=== PATIENT | female | born 1980 ===

== ENCOUNTER 2016-10-26 07:27 | Observation (INO) | payer MEDICAID ==
[2016-10-26 07:27] VITALS: BMI 29.6
--- NOTE | 2016-10-26 07:36 | C.PDOC ---
History Of Present Illness 36-year-old female, PMHx includes Anemia, secondary to uterine fibroid, presents to the emergency department with complaints of low hgb. Patient states she was seen by her PMD for generalized weakness and shortness of breath last week, who did blood work, and patient was found to have a low hgb, resulting in her being sent to the ED for evaluation and blood transfusion. Patient sts she had already 9 blood transfusions before. Patient notes that she is pending OBGYN appointment on 11/05. Denies any current vaginal bleeding/discharge, nausea/vomiting/diarrhea, fevers, chills, or any other associated symptoms. No other complaints at this time. PMD Genna Batres MD. Past Medical History Reviewed: Historical Data, Nursing Documentation, Vital Signs Vital Signs: Last Vital Signs Temp 98.6 F 10/26/16 07:38 Pulse 95 H 10/26/16 07:38 Resp 18 10/26/16 07:48 BP 113/75 10/26/16 07:38 Pulse Ox 99 10/26/16 07:48 - Medical History PMH: Anemia, Asthma Denies: Depression, Chronic Kidney Disease - [facility] Procedures INJECT/INFUSE ELECTROLYT (02/24/14) INJECT/INFUSE NEC (02/24/14) PACKED CELL TRANSFUSION (09/22/14) THERAPEUTIC ERYTHROCYTAPHERESIS (08/08/14) TRANSFUSE NONAUT RED BLOOD CELLS IN PERIPH VEIN, PERC (06/16/16) Family History: States: No Known Family Hx - Social History Hx Tobacco Use: Yes Hx Alcohol Use: No Hx Substance Use: No - Immunization History Hx Tetanus Toxoid Vaccination: Yes Hx Influenza Vaccination: No Hx Pneumococcal Vaccination: Yes Review Of Systems Except As Marked, All Systems Reviewed And Found Negative. Constitutional: Negative for: Fever, Chills Cardiovascular: Negative for: Chest Pain, Palpitations Respiratory: Positive for: Shortness of Breath Gastrointestinal: Negative for: Nausea, Vomiting Physical Exam - Physical Exam Appears: Non-toxic, No Acute Distress Skin: Warm, Dry, Pale, No Rash Head: Atraumatic Eye(s): bilateral: Normal Inspection Nose: Normal Oral Mucosa: Moist Lips: Normal Appearing Neck: Normal ROM Cardiovascular: Rhythm Regular, No Murmur Respiratory: Normal Breath Sounds, No Accessory Muscle Use Extremity: Normal ROM Neurological/Psych: Oriented x3 ED Course And Treatment - Laboratory Results Result Diagrams: 10/26/16 08:27 10/26/16 08:27 ECG: Interpreted By Me, Viewed By Me ECG Rhythm: Sinus Rhythm ECG Interpretation: No Acute Changes Rate From EC Progress Note: HGb 5.8. 2 units of PRBCs ordered. Case was d/w who accepts patient to [place] for observation. Disposition - Disposition Disposition: HOSPITALIZED Disposition Time: 09:21 Condition: FAIR - Clinical Impression Clinical Impression: Symptomatic anemia - PA / [employer] MANAGER / Resident Statement MD/DO has reviewed & agrees with the documentation as recorded. - Scribe Statement The provider has reviewed the documentation as recorded by the Scribe Andre Rodrigues All medical record entries made by the Scribe were at my direction and personally dictated by me. I have reviewed the chart and agree that the record accurately reflects my personal performance of the history, physical exam, medical decision making, and the department course for this patient. I have also personally directed, reviewed, and agree with the discharge instructions and disposition. Decision To Admit - Pt Status Changed To: Hospital Disposition Of: Observation - . Bed Request Type: Regular Admitting Physician: Filippo Arteaga Patient Diagnosis: Symptomatic anemia
[2016-10-26] MEDS ORDERED: Sodium Chloride 0.9% 1,000 ML IV STA (08:14)
[2016-10-26] MEDS ORDERED: Sodium Chloride 0.9% 1,000 ML ONE (08:28)
[2016-10-26 08:34] LABS: BASO % 0.3 % (0.0-2.0); EOS # 0.1 K/uL (0.0-0.7); EOS % 1.3 % (0.0-4.0); HEMATOCRIT 20.5 % (34.0-47.0); LYMPH # 1.8 K/uL (1.0-4.3); LYMPH % 23.6 % (20.0-40.0); MEAN CELL VOLUME 51.9 fL (81.0-99.0); MEAN CORPUSCULAR HEMOGLOBIN 14.6 pg (27.0-31.0); MEAN CORPUSCULAR HGB CONC 28.2 g/dL (33.0-37.0); MEAN PLATELET VOLUME 8.6 fL (7.2-11.7); MONO # 0.4 K/uL (0.0-0.8); MONO % 5.6 % (0.0-10.0); RED CELL DISTRIBUTION WIDTH 19.6 % (11.5-14.5); WHITE BLOOD COUNT 7.6 K/uL (4.8-10.8)
[2016-10-26 08:41] LABS: CHLORIDE 105 mmol/L (98-107); POTASSIUM 3.9 mmol/L (3.6-5.2); SODIUM 139 mmol/L (132-148)
[2016-10-26 08:43] LABS: BILIRUBIN,TOTAL 0.5 mg/dL (0.2-1.3); GFR AFRICAN-AMERICAN > 60
[2016-10-26 08:44] LABS: ALB/GLOB RATIO 1.4 (1.0-2.1); ALKALINE PHOSPHATASE 87 U/L (38-126); ALT/SGPT 17 U/L (9-52); AST/SGOT 18 U/L (14-36); BLOOD UREA NITROGEN 9 mg/dL (7-17); CARBON DIOXIDE 24 mmol/L (22-30); GLUCOSE,RANDOM 88 mg/dL (65-105); TOTAL PROTEIN 7.4 g/dL (6.3-8.3)
[2016-10-26 08:45] LABS: CALCIUM 8.7 mg/dl (8.6-10.4)
[2016-10-26 09:35] LABS: URINE BILIRUBIN NEGATIVE (NEGATIVE); URINE BLOOD 1+ (NEGATIVE); URINE COLOR Yellow (YELLOW); URINE GLUCOSE (UA) NORMAL (Normal); URINE KETONE NEGATIVE (NEGATIVE); URINE LEUKOCYTE ESTERASE NEG Leu/uL (Negative); URINE PROTEIN NEGATIVE (NEGATIVE); URINE UROBILINOGEN NORMAL mg/dL (0.2-1.0); WBC URINE 3 /hpf (0-5)
[2016-10-26 09:36] LABS: RBC URINE 4 /hpf (0-3)
--- NOTE | 2016-10-26 10:55 | CP.PCM.HP ---
<Rae Odonnell - Last Filed: 10/26/16 10:43> History of Present Illness - History of Present Illness History of Present Illness: CC: headache/weakness 36-year-old female with PMHx of anemia w/multiple transfusions, fibroid uterus, asthma, presents to the ED for 1 week history of headache, weakness, and chest discomfort. Patient has multiple admissions for the same in the past with need for transfusions. Patient follows with Dr. Burch and gets IV Iron infusions. Last infusion was June 2016 after last admission. FDLMP was 10/19/16 which lasted until today 10/26/26. She went to see her PMD Dr. Hobbs last week, who told her to go to the ED because her Hgb was 6.4 at that time. However, patient decided not to go. She came in today for worsening headache, lightheadedness, weakness. Currently she is not on her period. Admits periods are heavy and last 7-8 days. Admits to headache, chest pain, lightheadedness, weakness, hot/cold intolerance. Denies SOB, wheezing, palpitations, fevers, chills, nausea, vomiting, diarrhea, constipation, LE swelling. 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 PMHX: Asthma, Anemia, Fibroid uterus, Multiple blood transfusions. Allergies: NKDA Medications: Iron pills, Albuterol SHx: x 2, L falopian tube removed Social Hx: Smokes 3-4 cigs per day since age 20. Denies alcohol and drug use. Family Hx: Parents of HIV. Patient denies HIV and has been tested. PMD: Dr. Hobbs Rabbler: Dr. Burch Present on Admission - Present on Admission Any Indicators Present on Admission: No Review of Systems - Constitutional Constitutional: Fatigue. absent: Chills, Fever - EENT Eyes: absent: Blurred Vision, Change in Vision - Cardiovascular Cardiovascular: Chest Pain, Chest Pain with Activity. absent: Dyspnea, Edema, Palpitations - Respiratory Respiratory: absent: Cough, Dyspnea, Wheezing - Gastrointestinal Gastrointestinal: absent: Abdominal Pain, Constipation, Diarrhea, Hematemesis, Hematochezia, Loose Stools, Melena, Nausea, Vomiting - Genitourinary Genitourinary: absent: Difficulty Urinating, Dysuria - Reproductive: Female Reproductive:Female: Menses >/= 8 Days, Heavy Menses, Abnormal Vaginal Bleeding - Musculoskeletal Musculoskeletal: absent: Back Pain, Myalgias, Numbness, Tingling - Integumentary Integumentary: absent: Rash, Wounds - Neurological Neurological: absent: Weakness - Psychiatric Psychiatric: absent: Anxiety - Endocrine Endocrine: Fatigue. absent: Palpitations - Hematologic/Lymphatic Hematologic: absent: Easy Bleeding, Easy Bruising Past Patient History - Infectious Disease Hx of Infectious Diseases: None - Tetanus Immunizations Tetanus Immunization: Unknown - Past Medical History & Family History Past Medical History?: Yes - Past Social History Smoking Status: Light Smoker < 10 Cigarettes Daily - CARDIAC Hx Cardiac Disorders: No - PULMONARY Hx Asthma: Yes - NEUROLOGICAL Hx Neurological Disorder: No - HEENT Hx HEENT Problems: No - RENAL Hx Chronic Kidney Disease: No - ENDOCRINE/METABOLIC Hx Endocrine Disorders: No - HEMATOLOGICAL/ONCOLOGICAL Hx Anemia: Yes - INTEGUMENTARY Hx Dermatological Problems: No - MUSCULOSKELETAL/RHEUMATOLOGICAL Hx Musculoskeletal Disorders: Yes (DISLOCATED DISKS 4YRS AGO) Hx Back Pain: Yes Hx Falls: No - GASTROINTESTINAL Hx Gastrointestinal Disorders: No - GENITOURINARY/GYNECOLOGICAL Hx Genitourinary Disorders: No - PSYCHIATRIC Hx Depression: No Hx Substance Use: No - SURGICAL HISTORY Hx Section: Yes (X 2) Other/Comment: Left side FALLOPIAN tube removed - ANESTHESIA Hx Anesthesia: Yes Hx Anesthesia Reactions: No Meds Allergies/Adverse Reactions: Allergies Allergy/AdvReac Type Severity Reaction Status Date / Time No Known Allergies Allergy Verified 10/26/16 07:43 Physical Exam - Constitutional Appears: No Acute Distress - Head Exam Head Exam: NORMAL INSPECTION, NORMOCEPHALIC - Eye Exam Eye Exam: EOMI. absent: Normal appearance (pale conjuctiva) - ENT Exam ENT Exam: Mucous Membranes Moist - Neck Exam Neck exam: Positive for: Full Rom, Normal Inspection - Respiratory Exam Respiratory Exam: Clear to Auscultation Bilateral, NORMAL BREATHING PATTERN. absent: Rales, Rhonchi, Wheezes - Cardiovascular Exam Cardiovascular Exam: REGULAR RHYTHM, +S1, +S2 - GI/Abdominal Exam GI & Abdominal Exam: Normal Bowel Sounds, Soft. absent: Distended, Tenderness - Extremities Exam Extremities exam: Positive for: full ROM, normal inspection. Negative for: pedal edema - Back Exam Back exam: NORMAL INSPECTION - Neurological Exam Neurological exam: Alert, CN II-XII Intact, Oriented x3 - Psychiatric Exam Psychiatric exam: Normal Affect, Normal Mood - Skin Skin Exam: Dry, Pallor, Warm Results - Vital Signs Recent Vital Signs: Last Vital Signs Temp 98.3 F 10/26/16 10:20 Pulse 92 H 10/26/16 10:20 Resp 17 10/26/16 10:20 BP 112/56 L 10/26/16 10:20 Pulse Ox 99 10/26/16 10:20 - Labs Result Diagrams: 10/26/16 08:27 10/26/16 08:27 Labs: Laboratory Results - last 24 hr 10/26/16 09:27 Urine Color Yellow Urine Clarity Hazy Urine pH 5.0 Ur Specific [place] 1.021 Urine Protein Negative Urine Glucose (UA) Normal Urine Ketones Negative Urine Blood 1+ H Urine Nitrate Negative Urine Bilirubin Negative Urine Urobilinogen Normal Ur Leukocyte Esterase Neg Urine WBC (Auto) 3 Urine RBC (Auto) 4 H Ur Squamous Epith Cells 8 H Urine HCG, Qual Negative Assessment & Plan (1) Symptomatic anemia Assessment and Plan: H/H: 5.8/20.5 on admission. Vital signs stable. Patient with history of fibroid uterus, menorrhagia, and multiple transfusions. Will transfuse 2 units of PRBC No Iron studies ordered in the ED prior to emergent transfusion. f/u CBC at 6pm and in the AM Will transfuse additional units as needed PT/PTT/INR WNL EKG showed NSR 77 bpm Status: Acute (2) Chest pain Assessment and Plan: f/u JIE Panel EKG shows NSR 77 bpm Status: Acute (3) Asthma Assessment and Plan: No chemical anticoagulation at this time 2/2 severe anemia from uterine bleed. SCDs Pepcid 20 mg PO BID Status: Acute (4) Prophylactic measure Status: Acute <JenniFilippo M - Last Filed: 10/26/16 13:58> Results - Vital Signs Recent Vital Signs: Last Vital Signs Temp 97.6 F 10/26/16 13:08 Pulse 85 10/26/16 13:08 Resp 18 10/26/16 13:08 BP 100/59 L 10/26/16 13:08 Pulse Ox 99 10/26/16 12:20 - Labs Result Diagrams: 10/26/16 08:27 10/26/16 08:27 Labs: Laboratory Results - last 24 hr 05/27/17 09:27 Urine Color Yellow Urine Clarity Hazy Urine pH 5.0 Ur Specific [place] 1.021 Urine Protein Negative Urine Glucose (UA) Normal Urine Ketones Negative Urine Blood 1+ H Urine Nitrate Negative Urine Bilirubin Negative Urine Urobilinogen Normal Ur Leukocyte Esterase Neg Urine WBC (Auto) 3 Urine RBC (Auto) 4 H Ur Squamous Epith Cells 8 H Urine HCG, Qual Negative Attending/Attestation - Attestation I have personally seen and examined this patient.: Yes I have fully participated in the care of the patient.: Yes I have reviewed all pertinent clinical information: Yes Notes (Text): 10/26/16 13:58 Patient was seen and examined at bedside We will transfuse patient 2 units of PRBC. We will check the hemoglobin after transfusion. I discussed the plan of care with the resident and agree with the above history and physical and assessment/plan but the resident.
[2016-10-26 14:13] VITALS: RESP 20
[2016-10-26 16:29] VITALS: BP 94/60; PULSE 86; TEMP 98.1; O2SAT 98
[2016-10-26 18:26] LABS: BASO # 0.1 K/uL (0.0-0.2); BASO % 0.8 % (0.0-2.0); EOS # 0.1 K/uL (0.0-0.7); EOS % 1.1 % (0.0-4.0); HEMATOCRIT 28.4 % (34.0-47.0); LYMPH # 2.9 K/uL (1.0-4.3); LYMPH % 29.5 % (20.0-40.0); MEAN CORPUSCULAR HEMOGLOBIN 17.2 pg (27.0-31.0); MEAN CORPUSCULAR HGB CONC 29.3 g/dL (33.0-37.0); MEAN PLATELET VOLUME 8.7 fL (7.2-11.7); MONO # 0.6 K/uL (0.0-0.8); MONO % 5.9 % (0.0-10.0); RED CELL DISTRIBUTION WIDTH 28.6 % (11.5-14.5); WHITE BLOOD COUNT 9.8 K/uL (4.8-10.8)
[2016-10-26 18:33] LABS: MEAN CELL VOLUME 58.9 fL (81.0-99.0)
--- NOTE | 2016-10-26 18:49 | CP.PCM.DIS ---
<Rae Odonnell - Last Filed: 10/26/16 18:47> Provider - Provider Date of Admission: 10/26/16 09:23 Attending physician: Filippo Arteaga MD Consults: None Time Spent in preparation of Discharge (in minutes): 5 (left AMA) Diagnosis - Discharge Diagnosis (1) Symptomatic anemia Status: Acute Comment: transferred 2 units of PRBC. Left AMA Hospital Course - Lab Results Lab Results: Most Recent Lab Values WBC 9.8 K/uL (4.8-10.8) 10/26/16 18:23 RBC 4.83 Mil/uL (3.80-5.20) 10/26/16 18:23 Hgb 8.3 g/dL (11.0-16.0) L D 10/26/16 18:23 Hct 28.4 % (34.0-47.0) L 10/26/16 18:23 MCV 58.9 fL (81.0-99.0) L D 10/26/16 18:23 MCH 17.2 pg (27.0-31.0) L 10/26/16 18:23 MCHC 29.3 g/dL (33.0-37.0) L 10/26/16 18:23 RDW 28.6 % (11.5-14.5) H 10/26/16 18:23 Plt Count 434 K/uL (130-400) H 10/26/16 18:23 MPV 8.7 fL (7.2-11.7) 10/26/16 18:23 Neut % (Auto) 62.7 % (50.0-75.0) 10/26/16 18:23 Lymph % (Auto) 29.5 % (20.0-40.0) 10/26/16 18:23 Hendricks % (Auto) 5.9 % (0.0-10.0) 10/26/16 18:23 Eos % (Auto) 1.1 % (0.0-4.0) 10/26/16 18:23 Baso % (Auto) 0.8 % (0.0-2.0) 10/26/16 18:23 Neut # 6.2 K/uL (1.8-7.0) 10/26/16 18:23 Lymph # 2.9 K/uL (1.0-4.3) 10/26/16 18:23 Hendricks # 0.6 K/uL (0.0-0.8) 10/26/16 18:23 Eos # 0.1 K/uL (0.0-0.7) 10/26/16 18:23 Baso # 0.1 K/uL (0.0-0.2) 10/26/16 18:23 Differential Comment 10/26/16 08:27 PT 11.7 SECONDS (9.7-12.2) 10/26/16 08:27 INR 1.0 10/26/16 08:27 APTT 28 SECONDS (21-34) 10/26/16 08:27 Sodium 139 mmol/L (132-148) 10/26/16 08:27 Potassium 3.9 mmol/L (3.6-5.2) 10/26/16 08:27 Chloride 105 mmol/L (98-107) 10/26/16 08: Carbon Dioxide 24 mmol/L (22-30) 10/26/16 08:27 Anion Gap 14 (10-20) 10/26/16 08:27 BUN 9 mg/dL (7-17) 10/26/16 08:27 Creatinine 0.6 MG/DL (0.7-1.2) L 10/26/16 08:27 Est GFR ( Amer) > 60 10/26/16 08:27 Est GFR (Non-Af Amer) > 60 10/26/16 08:27 Random Glucose 88 mg/dL (65-105) 10/26/16 08: Calcium 8.7 mg/dl (8.6-10.4) 10/26/16 08:27 Total Bilirubin 0.5 mg/dL (0.2-1.3) 10/26/16 08:27 AST 18 U/L (14-36) 10/26/16 08:27 ALT 17 U/L (9-52) 10/26/16 08:27 Alkaline Phosphatase 87 U/L (38-126) 10/26/16 08:27 Total Creatine Kinase 50 U/L (30-135) 10/26/16 08:27 CK-MB (Mass) < 0.22 ng/mL (0.0-3.38) 10/26/16 08:27 Troponin I, Quant 0.0170 ng/mL (0.00-0.120) 10/26/16 08: Total Protein 7.4 g/dL (6.3-8.3) 10/26/16 08: Albumin 4.3 g/dL (3.5-5.0) 10/26/16 08: Globulin 3.1 gm/dL (2.2-3.9) 10/26/16 08: Albumin/Globulin Ratio 1.4 (1.0-2.1) 10/26/16 08: Urine Color Yellow (YELLOW) 10/26/16 09: Urine Clarity Hazy (Clear) 10/26/16 09: Urine pH 5.0 (5.0-8.0) 10/26/16 09: Ur Specific [place] 1.021 (1.003-1.030) 10/26/16 09:27 Urine Protein Negative mg/dL (NEGATIVE) 10/26/16 09: Urine Glucose (UA) Normal mg/dL (Normal) 10/26/16 09: Urine Ketones Negative mg/dL (NEGATIVE) 10/26/16 09:27 Urine Blood 1+ (NEGATIVE) H 10/26/16 09:27 Urine Nitrate Negative (NEGATIVE) 10/26/16 09: Urine Bilirubin Negative (NEGATIVE) 10/26/16 09:27 Urine Urobilinogen Normal mg/dL (0.2-1.0) 10/26/16 09:27 Ur Leukocyte Esterase Neg Darwin/uL (Negative) 10/26/16 09:27 Urine WBC (Auto) 3 /hpf (0-5) 10/26/16 09:27 Urine RBC (Auto) 4 /hpf (0-3) H 10/26/16 09:27 Ur Squamous Epith Cells 8 /hpf (0-5) H 10/26/16 09:27 Urine HCG, Qual Negative (NEGATIVE) 10/26/16 09: Blood Type O POSITIVE 10/26/16 08:27 Antibody Screen Negative 10/26/16 08: - Hospital Course Hospital Course: 36-year-old female with PMHx of anemia w/multiple transfusions, fibroid uterus, asthma, presents to the ED for 1 week history of headache, weakness, and chest discomfort. Patient has multiple admissions for the same in the past with need for transfusions. Patient follows with Dr. Burch and gets IV Iron infusions. Last infusion was June 2016 after last admission. FDLMP was 10/19/16 which lasted until today 10/26/26. She went to see her PMD Dr. Hobbs last week, who told her to go to the ED because her Hgb was 6.4 at that time. However, patient decided not to go. She came in today for worsening headache, lightheadedness, weakness. Currently she is not on her period. Admits periods are heavy and last 7-8 days. Admits to headache, chest pain, lightheadedness, weakness, hot/cold intolerance. Denies SOB, wheezing, palpitations, fevers, chills, nausea, vomiting, diarrhea, constipation, LE swelling. Patient left AMA after 2 units of PRBC were transfused. Hgb improved to 8.2. Risks of leaving AMA explained to patient. Patient understands. Discharge Exam - Head Exam Additional comments: Refused. Patient left AMA Discharge Plan - Follow Up Plan Condition: FAIR Disposition: AGAINST MEDICAL ADVICE <Filippo Arteaga - Last Filed: 10/27/16 08:32> Provider - Provider Date of Admission: 10/26/16 09:23 Attending physician: Filippo Arteaga MD Hospital Course - Lab Results Lab Results: Most Recent Lab Values WBC 9.8 K/uL (4.8-10.8) 10/26/16 18:23 RBC 4.83 Mil/uL (3.80-5.20) 10/26/16 18:23 Hgb 8.3 g/dL (11.0-16.0) L D 10/26/16 18:23 Hct 28.4 % (34.0-47.0) L 10/26/16 18:23 MCV 58.9 fL (81.0-99.0) L D 10/26/16 18:23 MCH 17.2 pg (27.0-31.0) L 10/26/16 18:23 MCHC 29.3 g/dL (33.0-37.0) L 10/26/16 18:23 RDW 28.6 % (11.5-14.5) H 10/26/16 18:23 Plt Count 434 K/uL (130-400) H 10/26/16 18:23 MPV 8.7 fL (7.2-11.7) 10/26/16 18:23 Neut % (Auto) 62.7 % (50.0-75.0) 10/26/16 18:23 Lymph % (Auto) 29.5 % (20.0-40.0) 10/26/16 18: Hendricks % (Auto) 5.9 % (0.0-10.0) 10/26/16 18:23 Eos % (Auto) 1.1 % (0.0-4.0) 10/26/16 18:23 Baso % (Auto) 0.8 % (0.0-2.0) 10/26/16 18: Neut # 6.2 K/uL (1.8-7.0) 10/26/16 18: Lymph # 2.9 K/uL (1.0-4.3) 10/26/16 18: Hendricks # 0.6 K/uL (0.0-0.8) 10/26/16 18:23 Eos # 0.1 K/uL (0.0-0.7) 10/26/16 18: Baso # 0.1 K/uL (0.0-0.2) 10/26/16 18: Differential Comment 10/26/16 08:27 PT 11.7 SECONDS (9.7-12.2) 10/26/16 08:27 INR 1.0 10/26/16 08:27 APTT 28 SECONDS (21-34) 10/26/16 08:27 Sodium 139 mmol/L (132-148) 10/26/16 08:27 Potassium 3.9 mmol/L (3.6-5.2) 10/26/16 08:27 Chloride 105 mmol/L (98-107) 10/26/16 08:27 Carbon Dioxide 24 mmol/L (22-30) 10/26/16 08:27 Anion Gap 14 (10-20) 10/26/16 08:27 BUN 9 mg/dL (7-17) 10/26/16 08:27 Creatinine 0.6 MG/DL (0.7-1.2) L 10/26/16 08:27 Est GFR ( Amer) > 60 10/26/16 08: Est GFR (Non-Af Amer) > 60 10/26/16 08: Random Glucose 88 mg/dL (65-105) 10/26/16 08: Calcium 8.7 mg/dl (8.6-10.4) 10/26/16 08: Total Bilirubin 0.5 mg/dL (0.2-1.3) 10/26/16 08: AST 18 U/L (14-36) 10/26/16 08: ALT 17 U/L (9-52) 10/26/16 08: Alkaline Phosphatase 87 U/L (38-126) 10/26/16 08: Total Creatine Kinase 50 U/L (30-135) 10/26/16 08: CK-MB (Mass) < 0.22 ng/mL (0.0-3.38) 10/26/16 08: Troponin I, Quant 0.0170 ng/mL (0.00-0.120) 10/26/16 08: Total Protein 7.4 g/dL (6.3-8.3) 10/26/16 08: Albumin 4.3 g/dL (3.5-5.0) 10/26/16 08: Globulin 3.1 gm/dL (2.2-3.9) 10/26/16 08: Albumin/Globulin Ratio 1.4 (1.0-2.1) 10/26/16 08:27 Urine Color Yellow (YELLOW) 10/26/16 09: Urine Clarity Hazy (Clear) 10/26/16 09: Urine pH 5.0 (5.0-8.0) 10/26/16 09: Ur Specific [place] 1.021 (1.003-1.030) 10/26/16 09: Urine Protein Negative mg/dL (NEGATIVE) 10/26/16 09: Urine Glucose (UA) Normal mg/dL (Normal) 10/26/16 09:27 Urine Ketones Negative mg/dL (NEGATIVE) 10/26/16 09: Urine Blood 1+ (NEGATIVE) H 10/26/16 09:27 Urine Nitrate Negative (NEGATIVE) 10/26/16 09: Urine Bilirubin Negative (NEGATIVE) 10/26/16 09:27 Urine Urobilinogen Normal mg/dL (0.2-1.0) 10/26/16 09:27 Ur Leukocyte Esterase Neg Darwin/uL (Negative) 10/26/16 09:27 Urine WBC (Auto) 3 /hpf (0-5) 10/26/16 09:27 Urine RBC (Auto) 4 /hpf (0-3) H 10/26/16 09:27 Ur Squamous Epith Cells 8 /hpf (0-5) H 10/26/16 09:27 Urine HCG, Qual Negative (NEGATIVE) 10/26/16 09:27 Blood Type O POSITIVE 10/26/16 08:27 Antibody Screen Negative 10/26/16 08:27 Attending/Attestation - Attestation I have personally seen and examined this patient.: Yes I have fully participated in the care of the patient.: Yes I have reviewed all pertinent clinical information, including history, physical exam and plan: Yes Notes (Text): 10/27/16 08:31 Patient left AMA I agree with above discharge note by the resident
--- NOTE | 2016-10-29 12:21 | CARD ---
APPROVED REPORT EKG Measurement Heart [id number] VT 130P50 [id number] <Conclusion> Normal sinus rhythm Normal ECG
== END 2016-10-26 18:45 | disposition left against medical advice (07) ==
LOC: C.ER 07:27 → C.9E 09:23 → C.5T 11:33
PROVIDERS: ADMIT Internal Medicine; ATTEND Internal Medicine
DX: D64.9 Anemia, unspecified (principal); D25.9 Leiomyoma of uterus, unspecified; R53.1 Weakness; R51 Headache; J45.909 Unspecified asthma, uncomplicated
CPT/HCPCS: 36430; 80053; 81001; 84484; 84703; 85025; 85610; 85730; 86850; 86900; 86920; 99285; G0378; J7040; P9051